=== PATIENT | female | born 1970 | race Caucasian/White ===

== ENCOUNTER → 2020-03-14 | Outpatient (CLI) | payer BC, OTHER ==
[~2020-03-14] MED LIST: ADVIL200 MG PO; ALBUTEROL2.5 MG/3 M INH; ATIVAN1 MG PO; CARAFATE; ESTRACE2 MG PO; FOLIC ACID 1 MG1 MG PO; HYDROCODON-ACE1 EAC4 PO; IMODIUM CAP 2 MG2 MG PO; IPRAT-ALBUT 0.5-3 ML INH; LEXAPRO20 MG PO; MARINOL5 MG PO; MORPHINE LIQUID; NORCO 5-325 TA1 EACH PO; PANTOPRAZOLE SO40 MG PO; PHENERGAN 12.12.5 M1 PO; PHENERGAN 25 MG25 M1 PO; PHENERGAN 25 MG25 MG PR; PHENERGAN25 MG PR; PREDNISONE 20 M20 MG PO; RANITIDINE HCL300 MG PO; SYMBICORT 16010.2 GM INH; SYMBICORT 80-10.2 GM INH; VALIUM 2 MG TAB2 MG PO; VALTREX500 MG PO; VANCOMYCIN HCL125 MG PO; ZANTAC300 MG PO; ZOFRAN4 MG PO
[2020-03-14 09:43] LABS: HEMOGLOBIN 14.6 gm/dl (12.3-15.3); RED BLOOD COUNT 4.86 M/UL (4.00-5.10); WHITE BLOOD COUNT 7.7 K/UL (4.5-11.0)
== END ==
LOC: CT 09:00
PROVIDERS: Internal Medicine Hematology & Oncology
DX: C34.31 Malignant neoplasm of lower lobe, right bronchus or lung (principal); C77.1 Secondary and unspecified malignant neoplasm of intrathoracic lymph nodes; K59.00 Constipation, unspecified; F17.210 Nicotine dependence, cigarettes, uncomplicated; R59.0 Localized enlarged lymph nodes
CPT/HCPCS: 36415; 71260; 80053; 85025; Q9963

== ENCOUNTER → 2020-05-16 | Outpatient (CLI) | payer BC, OTHER | LOC: EXRD 08:14 | DX: R74.01 Elevation of levels of liver transaminase levels (principal); K76.0 Fatty (change of) liver, not elsewhere classified; N28.1 Cyst of kidney, acquired | CPT/HCPCS: 76700 ==

== ENCOUNTER → 2020-08-29 | Outpatient (CLI) | payer BC, MEDICARE ==
[2020-08-29 09:43] LABS: RED BLOOD COUNT 4.91 M/UL (4.00-5.10); WHITE BLOOD COUNT 6.3 K/UL (4.5-11.0)
== END ==
LOC: CT 08:45
PROVIDERS: Internal Medicine Hematology & Oncology
DX: C34.31 Malignant neoplasm of lower lobe, right bronchus or lung (principal); C77.1 Secondary and unspecified malignant neoplasm of intrathoracic lymph nodes; F17.210 Nicotine dependence, cigarettes, uncomplicated; K59.00 Constipation, unspecified
CPT/HCPCS: 36415; 71260; 80053; 85025; Q9967

== ENCOUNTER → 2020-12-18 | Outpatient (CLI) | payer MEDICARE | LOC: MAMO 08:11 | DX: Z12.31 Encounter for screening mammogram for malignant neoplasm of breast (principal); M85.88 Other specified disorders of bone density and structure, other site | CPT/HCPCS: 77063; 77067; 77080 ==

== ENCOUNTER → 2021-02-22 | Outpatient (CLI) | payer MEDICARE | LOC: MAMO 02-06 10:00 → US 02-06 10:00 → MAMO 02-06 10:30 → US 12:50 → MAMO 14:30 | DX: R92.8 Other abnormal and inconclusive findings on diagnostic imaging of breast (principal) | CPT/HCPCS: 76641-RT ==

== ENCOUNTER → 2021-03-19 | Outpatient (CLI) | payer MEDICARE ==
[2021-03-19 08:23] LABS: HEMOGLOBIN 14.4 gm/dl (12.3-15.3); RED BLOOD COUNT 5.01 M/UL (4.00-5.10); WHITE BLOOD COUNT 6.6 K/UL (4.5-11.0)
== END ==
LOC: CT 03-15 09:00
PROVIDERS: Internal Medicine Hematology & Oncology
DX: C34.31 Malignant neoplasm of lower lobe, right bronchus or lung (principal); C77.1 Secondary and unspecified malignant neoplasm of intrathoracic lymph nodes; F17.210 Nicotine dependence, cigarettes, uncomplicated; K59.00 Constipation, unspecified
CPT/HCPCS: 36415; 71260; 80053; 85025; Q9967

== ENCOUNTER → 2021-05-21 | Outpatient (CLI) | payer MEDICARE ==
[~2021-05-21] MED LIST changes: +EUTHYROX50 MCG PO; +VALIUM2 MG PO
== END ==
LOC: KOH-I 05-15 15:00
DX: N28.1 Cyst of kidney, acquired (principal)
CPT/HCPCS: 76775

== ENCOUNTER → 2021-09-10 | Outpatient (CLI) | payer MEDICARE ==
[2021-09-10 10:18] LABS: HEMOGLOBIN 14.6 gm/dl (12.3-15.3); RED BLOOD COUNT 4.9 M/UL (4.00-5.10); WHITE BLOOD COUNT 8.2 K/UL (4.5-11.0)
== END ==
LOC: CT 09:30
PROVIDERS: Internal Medicine Hematology & Oncology
DX: C77.1 Secondary and unspecified malignant neoplasm of intrathoracic lymph nodes (principal); F17.210 Nicotine dependence, cigarettes, uncomplicated; K59.00 Constipation, unspecified
CPT/HCPCS: 36415; 71260; 80053; 85025; Q9967